=== PATIENT | male | born 2000 | race Hispanic/Latino ===

== ENCOUNTER → 2018-10-29 | Outpatient (CLI) | payer SELFPAY ==
[2018-10-29 15:07] VITALS: BMI 36.3
--- NOTE | 2018-10-29 15:22 | RAD_ITS ---
STUDY: X-RAY - LUMBAR SPINE REASON FOR EXAM: Male, 18 years old. Pain. TECHNIQUE: 5 view(s) of the lumbar spine were obtained. COMPARISON: None FINDINGS: Normal lumbar lordosis. There is no substantial scoliosis. There is a normal alignment of the vertebrae. Normal vertebral bodies and endplates. Normal disc space heights. There is no demonstrated fracture. The soft tissue structures are unremarkable. RAD/L/S Spine Min 4 Views IMPRESSION: Normal x-ray examination of the lumbar spine. Electronically Signed: Macario Garcia MD at 15:44 EDT , Service support ,
== END | disposition home or self-care (01) ==
LOC: HPRAD 15:18
PROVIDERS: Referring Provider Physician Assistant Surgical; Visit Provider Physician Assistant Surgical
DX: S39.012A Strain of muscle, fascia and tendon of lower back, initial encounter (principal)
CPT/HCPCS: 72110